=== PATIENT | female | born 1970 | race Two or more races ===

== ENCOUNTER 2022-05-29 05:39 | Day surgery (SDC) | payer OTHER ==
[2022-05-29] MEDS ORDERED: NEXIUM 24HR20 MG PO (08:24)
== END 2022-05-29 10:50 | disposition home or self-care (01) ==
LOC: AMB-ENDOS 05:39
PROVIDERS: ATTEND Surgery
DX: K29.00 Acute gastritis without bleeding (principal); K44.9 Diaphragmatic hernia without obstruction or gangrene; I10 Essential (primary) hypertension